=== PATIENT | male | born 1985 | race African-American/Black ===

== ENCOUNTER 2017-06-19 16:44 | Emergency (ER) | payer OTHER ==
[~2017-06-19] VITALS: Ht 193 cm; Wt 102.1 kg
[2017-06-19 16:48] VITALS: TEMP 37.2; Ht 193 cm; Wt 102.1 kg
[2017-06-19] MEDS ORDERED: XYLOCAINE 1%/SOD BICARB 20 ML VIAL INFIL ONE (17:00)
[2017-06-19] MEDS ORDERED: BUPIVACAINE 0.5 % 5 MG/1 ML MPF 30ML VIAL INFIL ONE (17:00)
--- NOTE | 2017-06-19 17:25 | DIAGNOSTIC IMAGING REPORT ---
RIGHT SECOND FINGER 3 VIEWS CLINICAL HISTORY: Second finger injury. FINDINGS: 3 views of the right second finger are obtained. No prior studies are available for comparison at the time of dictation. The skeletal structures are well mineralized. No fracture is seen. The second metacarpophalangeal and interphalangeal joints are well-maintained. Edema is noted in the second digit, greatest around the proximal interphalangeal joint. A cutaneous defect seen anteriorly is likely related to the reported history of laceration. No radiodense foreign body is identified. IMPRESSION: 1. No acute bony abnormality is seen in the right second finger. 2. Soft tissue edema/laceration as above. No radiodense foreign body is seen. Electronically signed by: Baltazar Galeano M.D. 06/19/2017 5:24 PM Dictated Date/Time: 06/19/2017 5:23 PM
--- NOTE | 2017-06-19 18:23 | EMERGENCY ROOM VISIT NOTE ---
History First contact with patient: 16:51 Chief Complaint: LACERATION/CUT (SUT/DERMABOND) Stated Complaint: LACERATION ON R INDEX FINGER Nursing Triage Summary: Patient ambulatory to triage with an upright and steady gait, states "I was playing basketball. I got tangled up with another britni. My finger bent all the way backwards, split open and I think it's broken." Injury occurred around 1530 today. Injury right index finger. History of Present Illness The patient is a 31 year old male who presents to the Emergency Room with complaints of a laceration to his right second finger. The patient states that he was playing basketball and got tangled up with another player. His finger bent backward and the skin split open on the underside of the finger. He denies any pain in the finger. The bleeding is controlled. His tetanus is up- to-date. He denies any numbness or weakness of the finger. Review of Systems A complete 10 point review of systems was reviewed with the patient with pertinent positives and negatives as per history of present illness. All else were negative. Social History Smoking Status: Never Smoker Current/Historical Medications No Active Prescriptions or Reported Meds Physical Exam Vital Signs Date Time Temp Pulse Resp B/P (MAP) Pulse Ox O2 Delivery O2 Flow Rate FiO2 06/19/17 18:27 74 20 148/74 100 Room Air 06/19/17 16:48 37.2 74 18 153/96 100 Room Air Physical Exam VITALS: Vitals are noted on the nurse's note and reviewed by myself. Vital signs stable. GENERAL: This is a 31-year-old male, in no acute distress, nondiaphoretic, well- developed well-nourished. RIGHT HAND: There is a 2.5 cm laceration to the palmar aspect of the right index finger, just proximal to the PIP. This extends through the subcutaneous tissue. There is minimal bleeding. No foreign bodies visible. The flexor tendon is visible in the base of the wound, but does not appear to be lacerated. Patient has full flexion and extension of the finger and strength is 5/5 against resistance. Capillary refill within 2 seconds. NEURO: Patient was alert and oriented to person place and time. Normal sensation to light and sharp touch. Medical Decision & Procedures ER Provider Diagnostic Interpretation: RIGHT SECOND FINGER 3 VIEWS FINDINGS: 3 views of the right second finger are obtained. No prior studies are available for comparison at the time of dictation. The skeletal structures are well mineralized. No fracture is seen. The second metacarpophalangeal and interphalangeal joints are well-maintained. Edema is noted in the second digit, greatest around the proximal interphalangeal joint. A cutaneous defect seen anteriorly is likely related to the reported history of laceration. No radiodense foreign body is identified. IMPRESSION: 1. No acute bony abnormality is seen in the right second finger. 2. Soft tissue edema/laceration as above. No radiodense foreign body is seen. Medications Administered Medications (Trade) Dose Ordered Sig/Tim Route Start Time Stop Time Status Last Admin Dose Admin Cephalexin Monohydrate (Keflex Cap) 500 mg NOW ONCE PO 06/19/17 18:30 06/19/17 18:31 DC 06/19/17 18:30 500 MG Procedure Verbal consent was obtained to perform the procedure. Using sterile technique the wound was cleaned with Betadine. The area was sterilely draped. 7 mL of a 1:1 solution of 1% buffered lidocaine and bupivacaine was used to perform a digital block to anesthetize the right index finger. Once the patient was anesthetized, the wound was copiously irrigated under pressure with sterile saline. The wound was explored as described in the physical exam section. The laceration was repaired using 7 simple interrupted 4-0 nylon sutures with the wound edges being well approximated. The patient tolerated the procedure well. Hemostasis was achieved. The area was cleaned with sterile saline and dressed with bacitracin ointment and bandage. Medical Decision Differential diagnosis includes laceration, tendon laceration, fracture, dislocation, among others. The patient was evaluated as above. X-ray negative for fracture or dislocation. Laceration does extend to the tendon, but there does not appear to be any tendon injury. Patient has full strength and normal sensation of the finger. The laceration was irrigated and repaired. The wound was dressed and the patient placed in a metal finger splint. He will be placed on Keflex given the depth of the wound to prevent infection. He was given first dose here and will [facility] the [facility]. He was given information for hand surgery and instructed to follow-up with medical to schedule follow-up if he has any change in sensation of the finger or difficulty with range of motion. The patient verbalized understanding and was discharged back to the correctional facility in good condition. Medication Reconcilliation Current Medication List: was personally reviewed by me Blood Pressure Screening Patient's blood pressure: Elevated blood pressure Blood pressure disposition: Elevated BP felt to be situational Impression Primary Impression: Laceration of finger Departure Information Dispostion Home / Self-Care Condition GOOD Prescriptions No Active Prescriptions or Reported Meds Referrals Neal ALDRICH (PCP) Jesse Shin MD Patient Instructions My [facility] Additional Instructions You have received 7 sutures on your finger. These sutures are NOT dissolvable and WILL need to be removed by a health care provider in 12-14 days. You can return to the Emergency Department or contact your Primary Care Provider to have the sutures removed. Wear the splint until the sutures are removed. If there is any difficulty moving the finger or numbness/weakness, you would need to have a follow-up with the hand surgeon, Dr. Shin. Proper wound care is essential for adequate wound healing and infection prevention. You can shower and clean the wound with soap and water. Do not scour over the wound, pat dry with a towel. Do not submerse the wound (i.e. bathe or dish wash) until the sutures have been removed. You can use an antibiotic ointment with a dressing over the wound for the next 3-4 days. After this time you may leave the wound dry and open to the air. If crust develops over the wound you can use a Q-tip to apply a 1:1 peroxide:water solution to clean the wound. Look for signs of infection of the wound including: increased pain, swelling, foul discharge, streaking, or increased temperature. If any of these are noticed you should return to the Emergency Department for further assessment and treatment. As with any laceration you may have received nerve damage to the surrounding tissues. This damage may or may not be permanent. You should keep the area covered with sunscreen for the first 6 months to 1 year when at risk for exposure to help minimize scarring. You can also use scar reducing creams or Vitamin E oil to help minimize scarring. For pain control, you can use the following [id number] medicines (if >12 yo): - Regular strength (325mg/tab) Tylenol (acetaminophen) 2 tabs every 4-6 hours as needed. Do not exceed 12 tablets in a 24 hour period. Avoid taking more than 4 grams (4000 mg) of Tylenol per day. This includes any other sources of acetaminophen you may take on a regular basis. - Regular strength (200 mg/tab) Advil (ibuprofen) 1-2 tabs every 4-6 hours as needed. Do not exceed a dose of 3200 mg per day. Return to the emergency department if your symptoms worsen despite treatment course outlined above. Problem Qualifiers Primary Impression: Laceration of finger Encounter type: initial encounter Finger: index finger Damage to nail status: without damage Foreign body presence: without foreign body Laterality: right Qualified Codes: S61.210A - Laceration without foreign body of right index finger without damage to nail, initial encounter
[2017-06-19 18:27] VITALS: BP 148/74; PULSE 74; O2SAT 100
[2017-06-19] MEDS ORDERED: CEPHALEXIN MONOHYDRATE 250 MG CAP PO ONE (18:30)
== END 2017-06-19 18:40 | disposition home or self-care (01) ==
LOC: C.EDB 16:47 → C.EDD 18:40
DX: S61.210A Laceration without foreign body of right index finger without damage to nail, initial encounter (principal); W51.XXXA Accidental striking against or bumped into by another person, initial encounter; Y92.89 Other specified places as the place of occurrence of the external cause; Y93.67 Activity, basketball